=== PATIENT | male | born 1995 | race Hispanic/Latino ===

== ENCOUNTER 2019-09-08 12:01 | Inpatient (IN) | payer OTHER ==
[~2019-09-08] VITALS: Ht 157.5 cm; Wt 69.0 kg
[2019-09-08 13:32] LABS: BASOPHILS % (AUTO) 0.4 % (0.0-5.0); HEMATOCRIT 41.6 % (42-54); LYMPHOCYTES % (AUTO) 19.9 % (21.0-51.0); MEAN CORPUSCULAR HGB CONC 34.4 g/dL (32.0-36.0); MONOCYTES % (AUTO) 10.9 % (3.0-13.0); NEUTROPHILS % (AUTO) 68.5 % (40.0-77.0); PLATELET COUNT (AUTO) 243 K/uL (130-400); RED BLOOD CELL COUNT(AUTO) 4.62 MIL/uL (4.50-6.20); RED CELL DISTRIBUTION WIDTH 13.1 % (11.0-15.5); WHITE BLOOD COUNT (AUTO) 10.1 K/uL (4.8-10.8)
[2019-09-08 13:38] LABS: APPEARANCE,URINE Clear (CLEAR); BILIRUBIN,URINE Negative (NEGATIVE); COLOR,URINE Yellow (YELLOW); GLUCOSE, URINE (UA) Negative (NEGATIVE); KETONES,URINE Negative (NEGATIVE); LEUKOCYTE ESTERASE ,URINE Negative (NEGATIVE); NITRATE,URINE Negative (NEGATIVE); OCCULT BLOOD,URINE Negative (NEGATIVE); PROTEIN,URINE POS 1+ mg/dL (NEGATIVE)
[2019-09-08 13:46] LABS: CARBON DIOXIDE 29 mmol/L (21-32); CHLORIDE 100 mmol/L (101-111); GLOMERULAR FILTR. RATE CALC 98 mL/min (>60); GLUCOSE,RANDOM 90 mg/dL (70-105); POTASSIUM 3.1 mmol/L (3.5-5.1); SODIUM SERUM 139 mmol/L (136-145); UREA NITROGEN, BLOOD 17 mg/dL (7-18)
[2019-09-08 13:47] LABS: AMPHET/METH SCREEN,URINE POSITIVE (NEGATIVE); BARBITURATE SCREEN, URINE NEGATIVE (NEGATIVE); BENZODIAZEPINES SCREEN,URINE POSITIVE (NEGATIVE); CANNABINOID SCREEN,URINE NEGATIVE (NEGATIVE); COCAINE SCREEN,URINE POSITIVE (NEGATIVE); OPIATE SCREEN,URINE NEGATIVE (NEGATIVE); PHENCYCLIDINE SCREEN,URINE NEGATIVE (NEGATIVE)
[2019-09-08 13:57] LABS: BACTERIA,URINE Few /HPF (None Seen); RBC,URINE 0-1 /HPF (0-1); WBC,URINE 0-1 /HPF (0-1)
[2019-09-08 13:58] LABS: SQUAMOUS EPITHELIAL CELL,UR None Seen /HPF (0-2)
[2019-09-08 14:10] LABS: ALANINE AMINOTRANSFERASE 58 U/L (12-78); ALBUMIN 4.6 g/dL (3.5-5.0); ASPARTATE AMINOTRANSFERASE 54 U/L (10-37); BILIRUBIN,TOTAL 1.3 mg/dL (0.2-1.0); TOTAL PROTEIN, SERUM 8.5 g/dL (6.0-8.3)
[2019-09-08 14:14] LABS: ACETAMINOPHEN < 1 mcg/mL (10-29); SALICYLATE < 2.8 mg/dL (2.8-20.0)
[2019-09-08 14:15] LABS: CREATINE KINASE, TOTAL 2117 U/L (21-232)
[2019-09-08] MEDS: SODIUM CHLORIDE 0.9% 1000ML 1,000 ML IV SCH (17:57)
[2019-09-08] MEDS ORDERED: HYDRALAZINE HCL 20 MG/ML VIAL IV PRN (18:00)
[2019-09-08] MEDS ORDERED: ACETAMINOPHEN 325 MG TAB PO PRN ×2 (18:00)
[2019-09-08] MEDS ORDERED: ONDANSETRON HCL 4 MG/2 ML VIAL IV PRN (18:00)
[2019-09-08] MEDS ORDERED: POTASSIUM CHLORIDE 10% ELIXIR 20 MEQ/15 ML UDCUP ONE (18:19)
[2019-09-08] MEDS ORDERED: SODIUM CHLORIDE 0.9% 1000ML 1,000 ML IV ONE (18:20)
[2019-09-08] MEDS ORDERED: POTASSIUM CHLORIDE 20 MEQ ERTAB PO SCH (18:30)
[2019-09-08 18:53] LABS: MAGNESIUM 2.1 mg/dL (1.80-2.40); PHOSPHORUS 4.1 mg/dL (2.5-4.9); THYROID STIMULATING HORMONE 1.01 uIU/mL (0.36-3.74)
[2019-09-08] MEDS ORDERED: FAMOTIDINE 20MG TAB 20 MG TAB ONE (20:37)
[2019-09-08] MEDS: FAMOTIDINE 20MG TAB 20 MG TAB PO SCH (21:00)
[2019-09-08 21:32] LABS: MYOGLOBIN 75 ng/mL (10-92)
[2019-09-08 21:33] LABS: CREATINE KINASE, TOTAL 1340 U/L (21-232)
[2019-09-09] MEDS: SODIUM CHLORIDE 0.9% 1000ML 1,000 ML IV SCH ×2 (00:37→07:17)
[2019-09-09 03:00] VITALS: BP 98/50
[2019-09-09 03:50] LABS: MYOGLOBIN 57 ng/mL (10-92)
[2019-09-09 03:52] LABS: CREATINE KINASE, TOTAL 1405 U/L (21-232)
[2019-09-09 07:05] VITALS: BP 98/51
--- NOTE | 2019-09-09 08:00 | NUR ---
cm note pt currently on 1:[address] [place] [employer] at bedside. admitted with dx failed attempted overdose, discussed case with MD and primary nurse. per md states pt not medically clear yet, but will require [place] evaluation prior to dc when ready. Addendum: 09/09/19 at 1859 by MEEK IVY CM Amended: Links added.
[2019-09-09] MEDS ORDERED: ENOXAPARIN SODIUM 40 MG/0.4 ML SYRINGE SQ SCH ×2 (09:00)
[2019-09-09] MEDS: FAMOTIDINE 20MG TAB 20 MG TAB PO SCH (09:11)
[2019-09-09 10:05] LABS: MYOGLOBIN 41 ng/mL (10-92)
[2019-09-09 10:14] LABS: CREATINE KINASE, TOTAL 1282 U/L (21-232)
[2019-09-09 11:00] VITALS: BP 105/63
--- NOTE | 2019-09-09 17:30 | NUR ---
PER DR. ULRICH AND DR. MARTHA RENDON TO CALL TROPICAL SCREENER. PATIENT STATING NEEDS TO AMA TODAY TO BE WITH HIS NEPHEW. SPOKE TO MARKY FRAZIER (TROPICAL SCREENER). MARKY SPOKE TO PATIENT AND STATED NEEDED TO SPEAK TO PATIENT'S FAMILY FOR MORE INFORMATION AND WILL REPORT BACK TO THE NURSE IN CHARGE OF THE PATIENT.
--- NOTE | 2019-09-09 19:10 | NUR ---
SPOKE TO MARKY FRAZIER ( TROPICAL SCREENER ), STATED SPOKE TO PATIENT'S FAMILY AND PATIENT'S PARTNER. PER MARKY, PATIENT'S PARTNER WOULD BE THE PERSON RECOMMENDED FOR THE PATIENT TO STAY WITH AFTER HOSPITAL DISCHARGE. MARKY STATED WILL TALK TO HIS MOTOR REBUILDER REGARDING THE CASE AND WILL CALL THE NIGHT NURSE WILL DETAILS. REPORT GIVEN TO WAQAR GAINES.
[2019-09-09 20:00] VITALS: BP 97/51
--- NOTE | 2019-09-09 21:07 | NUR ---
NOTE 2004 RECEIVED CALL FROM TROPICAL SCREENER MARKY FRAZIER AND STATES THAT PATIENT DOES NOT MEET CRITERIA FOR INPATIENT PSYCH TREATMENT. ASKED FOR THE DOCTOR OVERSEEING PATIENT AND IF MD HAD ALREADY GIVEN ORDERS FOR PATIENT'S RELEASE FROM HOSPITAL. INFORMED HIM THAT DR. THOMAS HAD LEFT ORDERS FOR MEDICAL CLEARANCE AND FOR PSYCH SCREENING TO BE DONE, BUT NO DISCHARGE ORDERS YET. HE SAID HE HAD TO SPEAK TO HIS SLPS AND INQUIRED ABOUT THE MD. PROVIDED HIM WITH THE HOSPITALIST ANSWERING SERVICE NUMBER FOR THE [facility]. 2023 MARKY CONTACTED ME AND SAID HE SPOKE TO KRISTAN SPANGLER NP FOR THE HOSPITALIST. HE SAID THAT SHE IS TO GO SEE PATIENT. HE ALSO ASKING ABOUT RELEASE OF USP FOR PATIENT FOR THE POLICE OFFICERS AND THAT THE DOCTOR HAS TO AGREE TO THE RELEASE. WILL AWAIT Mariano SPANGLER NP TO COME. 2039 KRISTAN IS HERE AND WENT TO ROOM. SPOKE WITH HER ABOUT PATIENT'S REASON FOR ADMISSION AND WHAT HAD BEEN SPOKEN TO WITH THE SCREENER MARKY. SHE WENT TO THE ROOM TO SPEAK TO PATIENT AND HYDROELECTRIC PLANT ELECTRICIAN. ASKED TO CONTACT ROLLER PICKER SHE HAS SOME QUESTIONS ABOUT THE RELEASE THE SCREENER IS ASKING HER ABOUT. CONTACTED CARLOS LUCAS RNTALENT ACQUISITION ASSISTANT AND EXPLAINED THEN TURNED THAT PHONE OVER TO KRISTAN. 2053 AFTER SPEAKING TO PATIENT AND OFFICER. KRISTAN CONTACTED SCREENER. KRISTAN SAYS THE SCREENER IS GOING TO DO PAPERWORK FOR RELEASE OF USP. HYDROELECTRIC PLANT ELECTRICIAN WAS ALSO PRESENT AND INFORMED. SHE THEN WENT TO SPEAK TO PATIENT. TOLD HIM THAT SHE WANTS HIM TO STAY OVERNIGHT, BUT IF HE WANTED TO LEAVE IT WOULD BE AGAINST MEDICAL ADVISE. THAT PATIENT SAYS THAT IS WHAT HE WANTED TO LEAVE [facility]. OFFICER REMOVED HANDCUFFS. 2106 OBTAINED AMA FORM AND PROVIDED IT TO PATIENT TO SIGN. REMOVED IV. AND ASKED HIM IF HE HAD SECURED TRANSPORTATION. HE SAYS HE WILL CALL TO GET SOMEONE TO GIVE HIM A RIDE. HE HAS HIS CELL PHONE. INSTRUCTED CHIQUITA PAYTON SITTER TO REMAIN WITH PATIENT FOR NOW. STILL WHILE IN ROOM THE MARKY CALLED AND UPDATED HIM THAT PATIENT HAS DECIDED TO LEAVE AMA AFTER SPEAKING TO KRISTAN. HE ASKED TO SPEAK TO PATIENT AND GAVE PATIENT PHONE. PATIENT'S PHONE RANG. HE ANSWERED IT. PATIENT IT WAS MARKY CHECKING ON THE NUMBER HE PROVIDED HIM WITH. EXPLAINED TO HIM THAT IT IS HIS NUMBER AND HIS BOYFRIENDS NUMBER WHO HE IS PLANNING TO STAY WITH. PATIENT SAYS HE WILL CONTINUE TO CALL TO SECURE A RIDE. SPOKE WITH CARLOS AND UPDATED HER. SAYS YES TO KEEPING DOUGH SHEETER WITH PATIENT UNTIL HE FINDS HIS RIDE. CONTACTED SECURITY. SPOKE WITH STEPHANY TO SEE IF THERE ARE ANY BELONGINGS FOR PATIENT. THERE WAS NO FORM FOUND IN CHART WHERE SECURITY PERSONNEL USUALLY DOCUMENT THIS. SAYS SHE WILL CHECK AND ASKED ABOUT THE OFFICER THAT HAD LEFT AND TO PLEASE HAVE SOMEONE WALK WITH PATIENT ONCE HE SECURES RIDE.
--- NOTE | 2019-09-09 22:16 | NUR ---
NOTE 2130 CHECKED IN WITH PATIENT AND HE IS STILL TRYING TO GET A RIDE. 2208 PATIENT SAYS HE JUST GOT SOMEONE TO GIVE HIM A RIDE TO HIS BOYFRIENDS HOUSE AND WILL BE COMING IN ABOUT 20 MINUTES. 2216 WAS INFORMED THAT TRANSPORT IS HERE AND PATIENT IS ACCOMPANIED BY CHIQUITA WARP HANGER/SITTER TO THE ED ENTRANCE. 2225 CONTACTED COREMAKER MACHINE AND INFORMED.
[2019-09-10 08:05] LABS: RAPID PLASMA REAGIN NONREACTIVE (NONREACTIVE)
== END 2019-09-09 22:15 | disposition left against medical advice (07) | DRG 918 ==
LOC: EEVIPCON 12:01 → EDH 12:01 → EDHIP 12:02 → OBSVTOIN 12:02 → 3CH 23:27
PROVIDERS: ADMIT Internal Medicine; ATTEND Internal Medicine
DX: T43.622A Poisoning by amphetamines, intentional self-harm, initial encounter (principal); M62.82 Rhabdomyolysis; F13.10 Sedative, hypnotic or anxiolytic abuse, uncomplicated; F15.10 Other stimulant abuse, uncomplicated; F32.9 Major depressive disorder, single episode, unspecified; F60.2 Antisocial personality disorder; Z71.89 Other specified counseling; Y92.89 Other specified places as the place of occurrence of the external cause
CPT/HCPCS: 36415; 71110; 80053; 80074; 80305; 81001; 82550; 83735; 83874; 84100; 84443; 84484; 85025; 86592; 86701; 87390; 93005; G0378; G0480; G0481; J1650; J7030

== ENCOUNTER 2020-06-14 14:38 | Emergency (ER) | payer SELFPAY ==
[2020-06-14] MEDS ORDERED: ACETAMINOPHEN 325 MG TAB ONE (15:00)
[2020-06-14 15:04] LABS: APPEARANCE,URINE Clear (CLEAR); BILIRUBIN,URINE Negative (NEGATIVE); COLOR,URINE Yellow (YELLOW); GLUCOSE, URINE (UA) Negative (NEGATIVE); KETONES,URINE Negative (NEGATIVE); LEUKOCYTE ESTERASE ,URINE Small (NEGATIVE); NITRATE,URINE Negative (NEGATIVE); OCCULT BLOOD,URINE Negative (NEGATIVE); PROTEIN,URINE Negative (NEGATIVE)
[2020-06-14 15:28] LABS: BACTERIA,URINE Few /HPF (None Seen); MUCUS,URINE Few LPF (None Seen); RBC,URINE None Seen /HPF (0-1); SQUAMOUS EPITHELIAL CELL,UR None Seen /HPF (0-2)
== END 2020-06-14 15:49 | disposition home or self-care (01) ==
LOC: EEVIPCON 14:38 → EDH 14:38
DX: N50.82 Scrotal pain (principal); Z72.0 Tobacco use
CPT/HCPCS: 76870; 81001